=== PATIENT | male | born 1940 | race Caucasian/White ===

== ENCOUNTER 2016-10-14 09:14 | Outpatient (CLI) | payer MEDICARE, OTHER ==
[2016-10-14 09:53] LABS: eGFR (African) > 60; eGFR (Non-African) > 60
== END 2016-10-14 09:15 ==
LOC: LAB 09:14
PROVIDERS: ATTEND Internal Medicine Cardiovascular Disease
DX: I42.9 Cardiomyopathy, unspecified (principal)
CPT/HCPCS: 36415; 80048

== ENCOUNTER 2016-11-26 09:10 | Outpatient (CLI) | payer MEDICARE, OTHER | END 2016-11-26 09:12 | LOC: CARD 09:10 | PROVIDERS: ATTEND Internal Medicine Cardiovascular Disease | DX: I25.10 Atherosclerotic heart disease of native coronary artery without angina pectoris (principal); E78.00 Pure hypercholesterolemia, unspecified; I10 Essential (primary) hypertension; E11.9 Type 2 diabetes mellitus without complications | CPT/HCPCS: G0463 ==